=== PATIENT | female | born 1960 | race African-American/Black ===

== ENCOUNTER 2017-12-08 13:02 | Outpatient (CLI) | payer OTHER ==
--- NOTE | 2017-12-08 14:36 | MMO ---
BILATERAL SCREENING MAMMOGRAM: History: 57-year-old female for screening mammography. Comparison: None available. FINDINGS: Bilateral MLO and CC views of the breast show scattered fibroglandular breast tissue. Benign appearin g calcifications are seen in the both breasts. There is no evidence of suspicious mass, suspicious cl uster or microcalcifications, or area of architectural distortion. This study is interpreted with the assistance of computer aided detection. IMPRESSION: BIRADS category 2 - benign findings. Annual screening mammography is recommended. POS: [facility]
== END 2017-12-08 13:03 | disposition home or self-care (01) ==
LOC: SCSMAMMO 13:02
PROVIDERS: ATTEND Internal Medicine Hospice and Palliative Medicine
DX: Z12.31 Encounter for screening mammogram for malignant neoplasm of breast (principal)
CPT/HCPCS: 77067

== ENCOUNTER 2020-06-03 11:32 | Outpatient (CLI) | payer BC ==
--- NOTE | 2020-06-03 16:29 | MMO ---
Bilateral MAMMO Bilat Screen [facility]. CLINICAL HISTORY: Patient is 59 years old and is seen for screening. The patient has no family history of breast cancer. The patient has no personal history of cancer. VIEWS: The views performed were: bilateral craniocaudal with tomosynthesis and bilateral mediolateral oblique with tomosynthesis. FILMS COMPARED: The present examination has been compared to a prior imaging study performed at [facility] on 12/08/2017. This study has been interpreted with the assistance of computer-aided detection. MAMMOGRAM FINDINGS: There are scattered fibroglandular densities. Benign calcifications are noted bilaterally. Nodularity is stable. There are no suspicious masses, suspicious calcifications, or new areas of architectural distortion. IMPRESSION: THERE IS NO MAMMOGRAPHIC EVIDENCE OF MALIGNANCY. A ROUTINE FOLLOW-UP MAMMOGRAM IN 1 YEAR IS RECOMMENDED. THE RESULTS OF THIS EXAM WERE SENT TO THE PATIENT. ACR BI-RADS Category 2 - Benign finding MAMMOGRAPHY NOTE: 1. A negative mammogram report should not delay a biopsy if a dominant of clinically suspicious mass is present. 2. Approximately 10% to 15% of breast cancers are not detected by mammography. 3. Adenosis and dense breasts may obscure an underlying neoplasm. Reported by: GAMALIEL QUISPE MD Electonically Signed: [id number]
== END 2020-06-03 11:33 | disposition home or self-care (01) ==
LOC: BICMAMMO 11:32
PROVIDERS: ATTEND Family Medicine
DX: Z12.31 Encounter for screening mammogram for malignant neoplasm of breast (principal)
CPT/HCPCS: 77063; 77067

== ENCOUNTER 2023-08-20 14:11 | Outpatient (CLI) | payer OTHER | END 2023-08-20 14:12 | disposition home or self-care (01) | LOC: BICMAMMO 14:11 | PROVIDERS: ATTEND Nurse Practitioner Family | DX: Z12.31 Encounter for screening mammogram for malignant neoplasm of breast (principal); Z13.820 Encounter for screening for osteoporosis; N95.9 Unspecified menopausal and perimenopausal disorder; M85.88 Other specified disorders of bone density and structure, other site; M81.0 Age-related osteoporosis without current pathological fracture | CPT/HCPCS: 77063; 77067; 77080 ==

== ENCOUNTER 2025-05-01 09:16 | Outpatient (CLI) | payer OTHER | END 2025-05-01 09:17 | disposition home or self-care (01) | LOC: ULT 09:16 | PROVIDERS: ATTEND Family Medicine | DX: Z13.6 Encounter for screening for cardiovascular disorders (principal) | CPT/HCPCS: 76706 ==

== ENCOUNTER 2025-05-01 10:19 | Outpatient (CLI) | payer OTHER | END 2025-05-01 10:20 | disposition home or self-care (01) | LOC: BICMAMMO 10:19 | PROVIDERS: ATTEND Family Medicine | DX: Z12.31 Encounter for screening mammogram for malignant neoplasm of breast (principal); M81.0 Age-related osteoporosis without current pathological fracture; M85.89 Other specified disorders of bone density and structure, multiple sites | CPT/HCPCS: 77063; 77067; 77080 ==